=== PATIENT | female | born 1960 | race Caucasian/White ===

== ENCOUNTER → 2016-05-10 | Outpatient (CLI) | payer OTHER ==
--- NOTE | 2016-05-10 12:12 | MA ---
Screening Digital Mammogram With Tomosynthesis Clinical Indications: Routine screening. Technique: Standard digital cephalocaudal and tomosynthesis mediolateral oblique projections are obt ained. The digital images were processed by the [employer] computer aided detection system. Comparison: June 2011, December 2008 and May 2008 Breast density: B; There are scattered fibroglandular densities. Findings: CAD was reviewed. There is a new small nodular density in the upper outer anterior periareo lar right breast. There is a new small nodule deep in the central left breast seen only on the obliqu e lateral view. The remainder the breasts are stable. Impression: New nodular densities in each breast. Recommendation: Proceed to bilateral diagnostic mammography followed by ultrasound, as directed by t he interpreting radiologist. BI-RADS 0. Additional imaging bilateral. [facility] will send a result letter to the patient. Negative mammography should not preclude additional workup of a clinically suspicious finding. The patient's information is entered into a reminder system with a target due date for her next mammo gram.
== END ==
LOC: FIMAGING 10:10
PROVIDERS: ATTEND Obstetrics & Gynecology
DX: Z12.31 Encounter for screening mammogram for malignant neoplasm of breast (principal)
CPT/HCPCS: G0202

== ENCOUNTER → 2016-05-23 | Outpatient (CLI) | payer OTHER | LOC: FIMAGING 13:58 | PROVIDERS: ATTEND Obstetrics & Gynecology | DX: N60.01 Solitary cyst of right breast (principal) | CPT/HCPCS: G0204 ==